=== PATIENT | male | born 1990 | race Caucasian/White ===

== ENCOUNTER 2020-11-01 15:02 | Emergency (ER) | payer OTHER ==
[~2020-11-01] VITALS: Ht 180.3 cm; Wt 79.4 kg
[2020-11-01 15:06] VITALS: BP 128/82
== END 2020-11-01 15:48 | disposition home or self-care (01) ==
LOC: ER 15:02
DX: J02.8 Acute pharyngitis due to other specified organisms (principal); B97.89 Other viral agents as the cause of diseases classified elsewhere

== ENCOUNTER 2021-07-26 21:39 | Emergency (ER) | payer OTHER ==
[~2021-07-26] VITALS: Ht 180.3 cm; Wt 72.6 kg
[2021-07-26] MEDS ORDERED: DOXYCYCLINE 10100 MG PO (23:16)
[2021-07-26] MEDS ORDERED: VALIUM2 MG PO (23:16)
[2021-07-26] MEDS ORDERED: AZITHROMYCIN500 MG PO (23:16)
[2021-07-26 23:28] VITALS: BP 118/86
== END 2021-07-26 23:29 | disposition home or self-care (01) ==
LOC: ER 21:39
DX: M54.2 Cervicalgia (principal); J18.9 Pneumonia, unspecified organism; R05 Cough; V89.2XXA Person injured in unspecified motor-vehicle accident, traffic, initial encounter; Y93.19 Activity, other involving water and watercraft; Y92.89 Other specified places as the place of occurrence of the external cause; Y99.8 Other external cause status